=== PATIENT | female | born 1960 | race Caucasian/White ===

== ENCOUNTER 2017-06-08 10:07 | Outpatient (RCR) | payer BC, MEDICARE | END 2017-07-19 08:08 | disposition home or self-care (01) | LOC: WSPT 10:07 | DX: M43.16 Spondylolisthesis, lumbar region (principal) | CPT/HCPCS: G8978-GP; G8979-GP ==

== ENCOUNTER → 2017-06-08 | Outpatient (CLI) | payer BC, MEDICARE ==
[~2017-06-08] MED LIST: ALBUTEROL0.83 MG/ML IH; ASCRIPTIN1 TAB PO; ASPIRIN 81M81 MG/TA2 PO; CALCIUM 600/VIT1 CAP PO; CELEBREX 200MG200 MG PO; CYMBALTA 30MG30 MG PO; DEXILANT60 MG PO; DOXYCYCLINE 10100 MG PO; FLEXERIL 1010 MG/TAB PO; FOSAMAX 70MG TA70 MG PO; GYNODIOL1 MG PO; LISINOPRIL10 MG PO; LORTAB 7.5/5001 TAB PO; MEDROL 4MG DOSPA4 MG PO; MULTI VITAMINS1 TAB PO; MULTIPLE VITAMI1 CAP PO; NEURONTIN800 MG/TAB PO; NORCO 325 MG-51 TAB PO; NORCO 325 MG-7.1 TAB PO; OMEGA 31000 MG PO; PREVACID 30MG30 M1 PO; ROBAXIN 50500 MG/TAB PO; RYZOLT100 MG PO; TYLENOL W/COD1 UDTAB PO; VICODIN 5/300 PO; VITAMIN D 1001000 IU PO
== END ==
LOC: MHCPAIN 13:27
DX: G89.29 Other chronic pain (principal); M47.27 Other spondylosis with radiculopathy, lumbosacral region; M96.1 Postlaminectomy syndrome, not elsewhere classified; M48.061 Spinal stenosis, lumbar region without neurogenic claudication
CPT/HCPCS: G0463

== ENCOUNTER → 2017-06-16 | Outpatient (CLI) | payer BC, MEDICARE | LOC: MHCPAIN 07:32 | DX: M47.27 Other spondylosis with radiculopathy, lumbosacral region (principal); M48.061 Spinal stenosis, lumbar region without neurogenic claudication; M43.16 Spondylolisthesis, lumbar region; M96.1 Postlaminectomy syndrome, not elsewhere classified | CPT/HCPCS: J1100; J2250; J3010; Q9967 ==

== ENCOUNTER → 2017-06-28 | Outpatient (CLI) | payer MEDICARE, OTHER | LOC: MHCPAIN 09:22 | DX: G89.29 Other chronic pain (principal); M47.27 Other spondylosis with radiculopathy, lumbosacral region; M96.1 Postlaminectomy syndrome, not elsewhere classified; M48.061 Spinal stenosis, lumbar region without neurogenic claudication | CPT/HCPCS: G0463 ==

== ENCOUNTER → 2017-07-05 | Outpatient (CLI) | payer MEDICARE, OTHER | LOC: MC.RAD 06-16 09:20 | DX: Z12.31 Encounter for screening mammogram for malignant neoplasm of breast (principal) ==

== ENCOUNTER → 2017-08-02 | Outpatient (CLI) | payer MEDICARE, OTHER | LOC: MHCPAIN 08:35 | DX: G89.29 Other chronic pain (principal); M47.27 Other spondylosis with radiculopathy, lumbosacral region; M53.3 Sacrococcygeal disorders, not elsewhere classified; M96.1 Postlaminectomy syndrome, not elsewhere classified; M48.061 Spinal stenosis, lumbar region without neurogenic claudication | CPT/HCPCS: G0463 ==

== ENCOUNTER 2018-02-08 08:45 | Outpatient (RCR) | payer MEDICARE, OTHER | END 2018-02-20 10:28 | disposition home or self-care (01) | LOC: WSPT 08:45 | DX: G89.18 Other acute postprocedural pain (principal); M43.16 Spondylolisthesis, lumbar region | CPT/HCPCS: G8978-GP; G8979-GP ==

== ENCOUNTER → 2018-07-24 | Outpatient (CLI) | payer MEDICARE, BC | LOC: MC.RAD 09:37 | DX: Z12.31 Encounter for screening mammogram for malignant neoplasm of breast (principal) ==

== ENCOUNTER → 2019-08-27 | Outpatient (CLI) | payer MEDICARE, BC | LOC: MC.RAD 08-03 11:15 | DX: Z12.31 Encounter for screening mammogram for malignant neoplasm of breast (principal) ==

== ENCOUNTER → 2019-11-05 | Outpatient (CLI) | payer MEDICARE, BC ==
--- NOTE | 2019-10-31 09:07 | NUR ---
pt not home. left msg regarding date time and instructions for procedure. also left call back number and asked her to call back to confirm info
[~2019-11-05] VITALS: Ht 162.6 cm; Wt 73.5 kg
[~2019-11-05] MED LIST changes: +CALCIUM 600/VIT1 CA1 PO; -CALCIUM 600/VIT1 CAP PO; +CBD PO; +INDERAL40 MG PO; -LISINOPRIL10 MG PO; +NEURONTIN300 MG/CAP PO; +ZESTRIL 5MG5 MG PO
[2019-11-05 09:56] VITALS: BP 136/78; PULSE 54
[2019-11-05 10:35] VITALS: BP 116/65; PULSE 53
[2019-11-05 10:45] VITALS: BP 116/68; PULSE 54
[2019-11-05 11:00] VITALS: BP 111/66; PULSE 60
[2019-11-05 11:15] VITALS: BP 109/63; PULSE 65
[2019-11-05 14:03] LABS: CSF APPEARANCE CLEAR; CSF COLOR COLORLESS; CSF RBC 22 /mm3 (0-0)
[2019-11-05 14:04] LABS: CSF MONONUCLEAR 100 % (70-100); CSF POLYMORPHONUCLEAR 0 % (0-6)
[2019-11-05 21:38] LABS: GLUCOSE,CSF 57 mg/dL (40-70); TOTAL PROTEIN,CSF 30 mg/dL (15-45)
== END ==
LOC: COL.RAD 10-01 09:30
PROVIDERS: Psychiatry & Neurology Neurology
DX: G37.9 Demyelinating disease of central nervous system, unspecified (principal)

== ENCOUNTER → 2020-08-05 | Outpatient (CLI) | payer MEDICARE, BC | LOC: MHCPAIN 09:15 | DX: M47.817 Spondylosis without myelopathy or radiculopathy, lumbosacral region (principal); M54.17 Radiculopathy, lumbosacral region; M53.3 Sacrococcygeal disorders, not elsewhere classified; M96.1 Postlaminectomy syndrome, not elsewhere classified; G89.29 Other chronic pain | CPT/HCPCS: G0463 ==

== ENCOUNTER → 2020-08-07 | Outpatient (CLI) | payer MEDICARE, BC | LOC: MHCPAIN 07:39 | DX: M47.817 Spondylosis without myelopathy or radiculopathy, lumbosacral region (principal); M96.1 Postlaminectomy syndrome, not elsewhere classified; M54.16 Radiculopathy, lumbar region | CPT/HCPCS: J1100; Q9967 ==

== ENCOUNTER → 2020-09-17 | Outpatient (CLI) | payer MEDICARE, BC ==
[~2020-09-17] MED LIST changes: +GLUCOPHAGE500 MG/TAB PO; +LYRICA 75MG CAP75 MG PO; +PROAIR HFA0.09 MG/AC IH; +RECTIV0.4% RC
== END ==
LOC: MC.RAD 12:30
DX: Z12.31 Encounter for screening mammogram for malignant neoplasm of breast (principal)

== ENCOUNTER → 2020-09-22 | Outpatient (CLI) | payer MEDICARE, BC | LOC: MHCPAIN 10:13 | DX: M47.816 Spondylosis without myelopathy or radiculopathy, lumbar region (principal); M53.3 Sacrococcygeal disorders, not elsewhere classified; M96.1 Postlaminectomy syndrome, not elsewhere classified; G89.29 Other chronic pain | CPT/HCPCS: G0463 ==

== ENCOUNTER → 2020-12-08 | Outpatient (CLI) | payer MEDICARE, BC | LOC: MHCPAIN 09:41 | DX: M47.816 Spondylosis without myelopathy or radiculopathy, lumbar region (principal); M96.1 Postlaminectomy syndrome, not elsewhere classified; M53.3 Sacrococcygeal disorders, not elsewhere classified; M79.2 Neuralgia and neuritis, unspecified | CPT/HCPCS: G0463 ==

== ENCOUNTER 2021-03-17 08:08 | Outpatient (CLI) | payer MEDICARE, BC ==
[~2021-03-17] VITALS: Ht 162.6 cm; Wt 81.8 kg
[~2021-03-17 08:08] MED LIST changes: -GLUCOPHAGE500 MG/TAB PO; -LYRICA 75MG CAP75 MG PO; -PROAIR HFA0.09 MG/AC IH; -RECTIV0.4% RC
[2021-03-17 08:52] VITALS: BP 138/69; PULSE 58; TEMP 98.3
[2021-03-17 09:05] VITALS: BP 124/70; PULSE 58
[2021-03-17] MEDS ORDERED: LYRICA 75MG CAP75 MG PO (09:09)
[2021-03-17] MEDS ORDERED: RECTIV0.4% RC (09:10)
[2021-03-17] MEDS ORDERED: PROAIR HFA0.09 MG/AC IH (09:14)
[2021-03-17] MEDS ORDERED: GLUCOPHAGE500 MG/TAB PO (09:15)
[2021-03-17 09:29] VITALS: BP 108/83; PULSE 57
[2021-03-17 09:50] VITALS: BP 121/73; PULSE 59
[2021-03-17 10:25] VITALS: BP 123/78; PULSE 58
== END 2021-03-17 10:34 ==
LOC: EUO 08:08
DX: U07.1 COVID-19 (principal)
CPT/HCPCS: M0243; Q0244

== ENCOUNTER → 2021-03-25 | Outpatient (CLI) | payer MEDICARE, BC ==
[~2021-03-25] MED LIST changes: +GLUCOPHAGE500 MG/TAB PO; +LYRICA 75MG CAP75 MG PO; +PROAIR HFA0.09 MG/AC IH; +RECTIV0.4% RC
== END ==
LOC: MHCPAIN 03-17 08:37
DX: M79.2 Neuralgia and neuritis, unspecified (principal); M54.5 Low back pain; M53.3 Sacrococcygeal disorders, not elsewhere classified; M96.1 Postlaminectomy syndrome, not elsewhere classified
CPT/HCPCS: G0463

== ENCOUNTER → 2021-11-11 | Outpatient (CLI) | payer MEDICARE, BC | LOC: MC.RAD 10-07 11:00 | DX: Z12.31 Encounter for screening mammogram for malignant neoplasm of breast (principal) ==

== ENCOUNTER → 2022-08-05 | Outpatient (CLI) | payer MEDICARE, BC | LOC: COL.RAD 06-25 12:30 | DX: M19.011 Primary osteoarthritis, right shoulder (principal); M67.813 Other specified disorders of tendon, right shoulder ==

== ENCOUNTER → 2023-03-08 | Outpatient (CLI) | payer MEDICARE, BC | LOC: MHCPAIN 07:59 | DX: M47.896 Other spondylosis, lumbar region (principal); M51.9 Unspecified thoracic, thoracolumbar and lumbosacral intervertebral disc disorder; M54.17 Radiculopathy, lumbosacral region; M96.1 Postlaminectomy syndrome, not elsewhere classified | CPT/HCPCS: G0463 ==

== ENCOUNTER → 2023-04-04 | Outpatient (CLI) | payer MEDICARE, BC | LOC: MHCPAIN 11:34 | DX: M47.817 Spondylosis without myelopathy or radiculopathy, lumbosacral region (principal); M96.1 Postlaminectomy syndrome, not elsewhere classified; M54.17 Radiculopathy, lumbosacral region | CPT/HCPCS: J1100; Q9967 ==

== ENCOUNTER → 2023-11-22 | Outpatient (CLI) | payer MEDICARE, BC | LOC: COL.RAD 03:00 → MC.RAD 15:30 | DX: Z12.31 Encounter for screening mammogram for malignant neoplasm of breast (principal) ==

== ENCOUNTER → 2024-02-21 | Outpatient (CLI) | payer MEDICARE, BC | LOC: MHCPAIN 10:25 | DX: M54.16 Radiculopathy, lumbar region (principal); M51.36 Other intervertebral disc degeneration, lumbar region; Z98.1 Arthrodesis status; M79.7 Fibromyalgia; M43.16 Spondylolisthesis, lumbar region | CPT/HCPCS: G0463 ==

== ENCOUNTER → 2024-03-22 | Outpatient (CLI) | payer MEDICARE, BC ==
[~2024-03-22] MED LIST changes: +Iohexol 300 - 10 ML VIAL ONE; +Lidocaine PF 2% (20 MG/ML) 2 ML VIAL ONE
== END ==
LOC: MHCPAIN 05-26 13:26
DX: M47.816 Spondylosis without myelopathy or radiculopathy, lumbar region (principal); M96.1 Postlaminectomy syndrome, not elsewhere classified; M54.16 Radiculopathy, lumbar region
CPT/HCPCS: J1100; Q9967

== ENCOUNTER → 2024-04-11 | Outpatient (CLI) | payer MEDICARE, BC | LOC: MHCPAIN 13:42 | DX: M48.061 Spinal stenosis, lumbar region without neurogenic claudication (principal); M96.1 Postlaminectomy syndrome, not elsewhere classified; M43.16 Spondylolisthesis, lumbar region; M47.816 Spondylosis without myelopathy or radiculopathy, lumbar region; S22.080D Wedge compression fracture of T11-T12 vertebra, subsequent encounter for fracture with routine healing; M79.2 Neuralgia and neuritis, unspecified | CPT/HCPCS: G0463; J1010; Q9967 ==

== ENCOUNTER → 2024-04-12 | Outpatient (CLI) | payer MEDICARE, BC ==
[~2024-04-12] MED LIST changes: -Iohexol 300 - 10 ML VIAL ONE; -Lidocaine PF 2% (20 MG/ML) 2 ML VIAL ONE
== END ==
LOC: MHCPAIN 08:41
DX: M47.816 Spondylosis without myelopathy or radiculopathy, lumbar region (principal); M96.1 Postlaminectomy syndrome, not elsewhere classified; M54.16 Radiculopathy, lumbar region